=== PATIENT | female | born 1960 | race Hispanic/Latino ===

== ENCOUNTER 2017-07-16 16:53 | Emergency (ER) | payer OTHER ==
[2017-07-16 16:53] VITALS: BMI 34.4
[2017-07-16 17:09] VITALS: TEMP 98.5
[2017-07-16 18:51] VITALS: BP 173/102; PULSE 77; RESP 22; O2SAT 100
--- NOTE | 2017-07-16 19:08 | ED PDOC ---
Arrival/HPI - General Chief Complaint: Back Pain Time Seen by Provider: 07/16/17 17:04 - History of Present Illness Narrative History of Present Illness (Text): 56 y/o F p/w back pain x 9 days. States pain began abruptly after a slip in the shower that strained her R sided back. Since then, especially in the last 3 days , the pain has been severe, shooting down the back of the R leg, worse with movement, especially flexing at the hip. She denies fever, recent surgery, numbness, weakness, urinary or bowel changes. Past Medical History - Infectious Disease Hx of Infectious Diseases: None - Tetanus Immunization Tetanus Immunization: Unknown - Cardiac Hx Cardiac Disorders: Yes Hx Hypertension: Yes - Pulmonary Hx Respiratory Disorders: No - Neurological Hx Neurological Disorder: No - HEENT Hx HEENT Disorder: Yes (wears glasses) - Renal Hx Renal Disorder: No - Endocrine/Metabolic Hx Endocrine Disorders: Yes Hx Hypothyroidism: Yes - Hematological/Oncological Hx Blood Disorders: No - Integumentary Hx Dermatological Disorder: No - Musculoskeletal/Rheumatological Hx Falls: No - Gastrointestinal Hx Gastrointestinal Disorders: Yes Hx Diverticulitis: Yes (and diverticulosis) - Genitourinary/Gynecological Hx Genitourinary Disorders: No - Psychiatric Hx Anxiety: Yes Hx Substance Use: No - Surgical History Hx Appendectomy: Yes Hx Hysterectomy: Yes - Anesthesia Hx Anesthesia: Yes - Suicidal Assessment Feels Threatened In Home Enviroment: No Family/Social History Family/Social History: No Known Family HX Smoking Status: Never Smoked Hx Alcohol Use: No Hx Substance Use: No Hx Substance Use Treatment: No Allergies/Home Meds Allergies/Adverse Reactions: Allergies No Known Allergies Allergy (Verified 07/16/17 17:05) Home Medications: Home Meds Medication Instructions Recorded Confirmed Alprazolam [Xanax] 1 mg PO PRN PRN 12/01/15 07/16/17 Levothyroxine [Synthroid] 50 mcg PO DAILY 12/12/16 07/16/17 Losartan [Cozaar] 100 mg PO DAILY 07/16/17 07/16/17 Review of Systems - Physician Review All systems were reviewed & negative as marked: Yes - Review of Systems Constitutional: absent: Fevers Respiratory: absent: SOB Physical Exam - Physical Exam Narrative Physical Exam (Text): R sided back pain, positive straight leg raise. No midline tenderness. Vital Signs Temp Pulse Resp BP Pulse Ox 07/16/17 18:49 77 22 173/102 H 100 07/16/17 17:14 98.5 F 88 18 179/99 H 97 07/16/17 17:06 98.5 F 88 18 179/99 H 98 - Systems Exam Head: Present: Normocephalic Pupils: Present: PERRL Mouth: Present: Moist Mucous Membranes Neck: No: MIDLINE TENDERNESS Respiratory/Chest: Present: Clear to Auscultation Cardiovascular: Present: Regular Rate and Rhythm Abdomen: No: Tenderness Upper Extremity: Present: NORMAL PULSES Lower Extremity: No: Edema Skin: No: Rashes Psychiatric: Present: Alert Medical Decision Making ED Course and Treatment: Toradol and Flexeril for pain. Checked [employer] [employer] [facility], 2 prescriptions for tramadol within the past year, unable to prescribe further opioids under [place] law. Informed patient of this, advised f/u with PMD for further management. Instructed to return to the ED immediately for urinary or bowel changes, numbness, or weakness. - Medication Orders Current Medication Orders: Discontinued Medications Cyclobenzaprine HCl (Flexeril) 10 mg PO STAT STA Stop: 07/16/17 19:02 Last Admin: 07/16/17 19:13 Dose: 10 mg Ketorolac Tromethamine (Toradol) 60 mg IM STAT STA Stop: 07/16/17 17:41 Last Admin: 07/16/17 17:58 Dose: 60 mg Disposition/Present on Arrival - Present on Arrival Any Indicators Present on Arrival: No History of DVT/PE: No History of Uncontrolled Diabetes: No Urinary Catheter: No History of Decub. Ulcer: No History Surgical Site Infection Following: None - Disposition Have Diagnosis and Disposition been Completed?: Yes Diagnosis: Back pain Disposition: HOME/ ROUTINE Disposition Time: 19:10 Patient Plan: Discharge Condition: STABLE Discharge Instructions (ExitCare): Lumbar Radiculopathy (ED), Back Pain (ED) Prescriptions: Methocarbamol [Robaxin-750] 1 tab PO Q8H #12 tablet Referrals: Pratibha Dickey MD [Primary Care Provider] - Follow up with primary Forms: [employer] ([place]i), WORK NOTE
== END 2017-07-16 19:20 | disposition home or self-care (01) ==
LOC: ED 16:53
DX: M54.9 Dorsalgia, unspecified (principal)
CPT/HCPCS: 96372; 99283; J1885

== ENCOUNTER 2017-07-17 08:15 | Emergency (ER) | payer OTHER ==
[2017-07-17 08:22] VITALS: TEMP 98.3; BMI 36.4
--- NOTE | 2017-07-17 08:58 | ED PDOC ---
Arrival/HPI - General Chief Complaint: Back Pain Time Seen by Provider: 07/17/17 08:15 Historian: Patient - History of Present Illness Narrative History of Present Illness (Text): 07/17/17 09:08 A 56 year old female, whose past medical history includes diverticulitis, hypertension and anxiety, was brought in by EMS to the emergency department complaining of right sided lower back pain radiating to lower extremity, worsening for the past few days. Reports to taking Percocet last night, with no relief. Pt denies any other complaints at this time. Denies any alcohol or drug use. PMD: Dr. Dickey 07/17/17 13:49 Time/Duration: > week Symptom Onset: Sudden Symptom Course: Unchanged Activities at Onset: Rest Context: Home Past Medical History - Provider Review Nursing Documentation Reviewed: Yes - Infectious Disease Hx of Infectious Diseases: None - Tetanus Immunization Tetanus Immunization: Unknown - Reproductive Menopause: No - Cardiac Hx Cardiac Disorders: Yes Hx Hypertension: Yes - Pulmonary Hx Respiratory Disorders: No - Neurological Hx Neurological Disorder: No - HEENT Hx HEENT Disorder: Yes (wears glasses) - Renal Hx Renal Disorder: No - Endocrine/Metabolic Hx Endocrine Disorders: Yes Hx Hypothyroidism: Yes - Hematological/Oncological Hx Blood Disorders: No - Integumentary Hx Dermatological Disorder: No - Musculoskeletal/Rheumatological Hx Falls: No - Gastrointestinal Hx Gastrointestinal Disorders: Yes Hx Diverticulitis: Yes (and diverticulosis) - Genitourinary/Gynecological Hx Genitourinary Disorders: No - Psychiatric Hx Anxiety: Yes Hx Substance Use: No - Surgical History Hx Appendectomy: Yes Hx Hysterectomy: Yes - Anesthesia Hx Anesthesia: Yes - Suicidal Assessment Feels Threatened In Home Enviroment: No Family/Social History - Physician Review Nursing Documentation Reviewed: Yes Family/Social History: No Known Family HX Smoking Status: Never Smoked Hx Alcohol Use: No Hx Substance Use: No Hx Substance Use Treatment: No Allergies/Home Meds Allergies/Adverse Reactions: Allergies No Known Allergies Allergy (Verified 07/17/17 08:29) Home Medications: Home Meds Medication Instructions Recorded Confirmed Alprazolam [Xanax] 1 mg PO PRN PRN 12/01/15 07/17/17 Levothyroxine [Synthroid] 50 mcg PO DAILY 12/12/16 07/17/17 Losartan [Cozaar] 100 mg PO DAILY 07/16/17 07/17/17 Review of Systems - Physician Review All systems were reviewed & negative as marked: Yes - Review of Systems Constitutional: absent: Fevers Musculoskeletal: Back Pain Skin: Other (R lower extremity pain, numbness) Physical Exam Vital Signs Reviewed: Yes Vital Signs Temp Pulse Resp BP Pulse Ox 07/17/17 09:55 81 18 169/88 H 98 07/17/17 09:28 81 18 175/87 H 100 07/17/17 08:20 98.3 F 94 H 20 164/114 H 100 Temperature: Afebrile Blood Pressure: Hypertensive Pulse: Regular Respiratory Rate: Normal Appearance: Positive for: Other (obese) Pain Distress: Mild Mental Status: Positive for: Alert and Oriented X 3 - Systems Exam Head: Present: Atraumatic, Normocephalic Pupils: Present: PERRL Extroacular Muscles: Present: EOMI Conjunctiva: Present: Normal Mouth: Present: Moist Mucous Membranes Neck: Present: Normal Range of Motion Respiratory/Chest: Present: Clear to Auscultation, Good Air Exchange. No: Respiratory Distress, Accessory Muscle Use Cardiovascular: Present: Regular Rate and Rhythm, Normal S1, S2. No: Murmurs Abdomen: Present: Normal Bowel Sounds. No: Tenderness, Distention, Peritoneal Signs Back: Present: Normal Inspection Upper Extremity: Present: Normal Inspection. No: Cyanosis, Edema Lower Extremity: Present: Normal Inspection. No: Edema Neurological: Present: GCS=15, CN II-XII Intact, Speech Normal, Motor Func Grossly Intact, Normal Sensory Function Skin: Present: Warm, Dry, Normal Color. No: Rashes Psychiatric: Present: Alert, Oriented x 3, Normal Insight, Normal Concentration Medical Decision Making ED Course and Treatment: 07/17/17 08:58 Impression: A 56 year old female with right sided lower back pain radiating down right lower extremity s/p slip and fall 10 days ago. Differential Diagnosis included but are not limited to: r/o fracture dislocation, sciatica Plan: -- Radiology Lumbar spine -- Toradol, Valium -- Reassess and disposition Prior Visits: Notes and results from previous visits were reviewed. Patient last reported to the emergency department on 07/16/17 for evaluation of back pain. Patient was given toradol and Flexeril and discharged home on Robaxin. Progress Notes: 07/17/17 09:28 Patient complaining of pain, given Morphine. 07/17/17 10:25 Radiographs of the Lumbar Spine Creator : Kyler Nguyen MD IMPRESSION: Unremarkable radiographs of the lumbar spine. 07/17/17 11:09 pt feels alot better,. sleeping in bed in no distress Patient in agreement with plan to be discharged home. Patient is stable for discharge. Patient was instructed to follow up with physician/clinic in 1-2 days or return if symptoms worsen or new concerning symptoms arise. 07/17/17 13:50 - RAD Interpretation Radiology Orders: 07/17/17 08:53 LS SPINE AP/LAT [RAD] Stat - Medication Orders Current Medication Orders: Discontinued Medications Diazepam (Valium) 5 mg PO ONCE ONE PRN Reason: Protocol Stop: 07/17/17 08:54 Last Admin: 07/17/17 09:00 Dose: 5 mg Ketorolac Tromethamine (Toradol) 30 mg IVP ONCE ONE Stop: 07/17/17 08:54 Last Admin: 07/17/17 08:58 Dose: 30 mg Morphine Sulfate (Morphine) 4 mg IVP STAT STA Stop: 07/17/17 09:28 Last Admin: 07/17/17 09:30 Dose: 4 mg Morphine Sulfate (Morphine) Confirm Administered Dose 4 mg .ROUTE .STK-MED ONE Stop: 07/17/17 09:32 Last Admin: 07/17/17 09:37 Dose: - Scribe Statement The provider has reviewed the documentation as recorded by the Meganibdarshan Bales Provider Scribe Attestation: All medical record entries made by the Scribe were at my direction and personally dictated by me. I have reviewed the chart and agree that the record accurately reflects my personal performance of the history, physical exam, medical decision making, and the department course for this patient. I have also personally directed, reviewed, and agree with the discharge instructions and disposition. Disposition/Present on Arrival - Present on Arrival Any Indicators Present on Arrival: No History of DVT/PE: No History of Uncontrolled Diabetes: No Urinary Catheter: No History of Decub. Ulcer: No History Surgical Site Infection Following: None - Disposition Have Diagnosis and Disposition been Completed?: Yes Diagnosis: Back pain Disposition: HOME/ ROUTINE Disposition Time: 09:45 Patient Plan: Discharge Patient Problems: Current Active Problems Problem Status Onset Back pain Acute Condition: IMPROVED Discharge Instructions (ExitCare): Back Pain (ED) Additional Instructions: follow up with your primary doctor in 1-2 days continue home pain medications as needed return to the ED with any worsening or concerning symptoms Referrals: Pratibha Dickey MD [Primary Care Provider] - Follow up with primary Forms: [employer] (Swedish)
[2017-07-17] MEDS ORDERED: Morphine 4 mg/ml ISec IVP STA (09:27)
[2017-07-17] MEDS ORDERED: Morphine 4 mg/ml ISec ONE (09:31)
[2017-07-17 09:37] VITALS: PULSE 81; RESP 18
--- NOTE | 2017-07-17 10:23 | RAD ---
PROCEDURE: Radiographs of the Lumbar Spine. HISTORY: lower back pain COMPARISON: No prior. FINDINGS: BONES: Normal alignment. No listhesis. No fracture. DISC SPACES: Unremarkable. OTHER FINDINGS: None. IMPRESSION: Unremarkable radiographs of the lumbar spine.
[2017-07-17 10:25] VITALS: BP 169/88; O2SAT 98
--- NOTE | 2017-07-17 13:37 | CARD ---
APPROVED REPORT EKG Measurement Heart [id number] <Conclusion> possibly sinus rhythm
== END 2017-07-17 11:30 | disposition home or self-care (01) ==
LOC: ED 08:15
DX: M54.9 Dorsalgia, unspecified (principal); I10 Essential (primary) hypertension
CPT/HCPCS: 72100; 93005; 96374; 96375; 99285; J1885; J2270

== ENCOUNTER 2017-09-04 14:34 | Observation (INO) | payer OTHER ==
[2017-09-04] MEDS ORDERED: TDAP Vaccine 0.5 mL Syr IM ONE (14:47)
--- NOTE | 2017-09-04 14:55 | ED PDOC ---
Arrival/HPI - General Historian: Patient - History of Present Illness Time/Duration: Prior to Arrival Symptom Onset: Sudden Symptom Course: Improving Quality: Burning, Throbbing Severity Level: Mild, Moderate Context: Street, Tripped <Tania Richey - Last Filed: 09/04/17 18:08> <Winifred Rodgers - Last Filed: 09/04/17 21:50> - General Chief Complaint: Trauma Time Seen by Provider: 09/04/17 14:38 - History of Present Illness Narrative History of Present Illness (Text): 09/04/17 14:52 [facility] 56F w/PMH sig for HTN, chronic low back pain 2/2 herniated disc evaluated s/p fall. Pt reports she was running to catch a door, became dizzy, and fell forward onto her outstretched hands and left face. Pt reports pain of her bilat hands, L face. Denies trauma to other areas of her body, Loss of consciousness , loss of bowel or bladder, other complaints. PMH: HTN, L 5 herniated disc PSH: Hysterectomy, appendectomy All: Denies SH: Admits to tobacco use #1 cigarette/day, denies ETOH or illicit drug use PMD: [facility]thar (Tania Richey) Past Medical History - Provider Review Nursing Documentation Reviewed: Yes - Infectious Disease Hx of Infectious Diseases: None - Tetanus Immunization Tetanus Immunization: Unknown - Cardiac Hx Cardiac Disorders: Yes Hx Hypertension: Yes - Pulmonary Hx Respiratory Disorders: No - Neurological Hx Neurological Disorder: No - HEENT Hx HEENT Disorder: No - Renal Hx Renal Disorder: No - Endocrine/Metabolic Hx Endocrine Disorders: Yes Hx Hypothyroidism: Yes - Hematological/Oncological Hx Blood Disorders: No - Integumentary Hx Dermatological Disorder: No - Musculoskeletal/Rheumatological Hx Falls: No - Gastrointestinal Hx Gastrointestinal Disorders: Yes Hx Diverticulitis: Yes (and diverticulosis) - Genitourinary/Gynecological Hx Genitourinary Disorders: No - Psychiatric Hx Psychophysiologic Disorder: Yes Hx Anxiety: Yes Hx Substance Use: No - Surgical History Hx Appendectomy: Yes Hx Hysterectomy: Yes - Anesthesia Hx Anesthesia: Yes - Suicidal Assessment Feels Threatened In Home Enviroment: No <Tania Richey - Last Filed: 09/04/17 18:08> Family/Social History - Physician Review Nursing Documentation Reviewed: Yes Family/Social History: No Known Family HX Smoking Status: Never Smoked Hx Alcohol Use: No Hx Substance Use: No Hx Substance Use Treatment: No <RicheyTania - Last Filed: 09/04/17 18:08> Allergies/Home Meds <RicheyTania - Last Filed: 09/04/17 18:08> <Winifred Rodgers - Last Filed: 09/04/17 21:50> Allergies/Adverse Reactions: Allergies No Known Allergies Allergy (Verified 09/04/17 14:44) Home Medications: Home Meds Medication Instructions Recorded Confirmed Alprazolam [Xanax] 0.25 mg PO BID 12/01/15 09/04/17 Levothyroxine [Synthroid] 50 mcg PO DAILY 12/12/16 09/04/17 Losartan [Cozaar] 100 mg PO DAILY 07/16/17 09/04/17 amLODIPine [Norvasc] 10 mg PO DAILY 09/04/17 09/04/17 Review of Systems - Review of Systems Constitutional: Normal Eyes: Normal. absent: Vision Changes ENT: Normal. absent: Sore Throat Respiratory: Normal. absent: SOB Cardiovascular: Normal. absent: Chest Pain Gastrointestinal: Normal, Nausea (resolved). absent: Vomiting Musculoskeletal: Other (hand pain) Skin: Skin Lesions (abrasions over bilat palms, small). absent: Normal Neurological: Dizziness. absent: Normal Endocrine: Normal. absent: Diaphoresis <Tania Richey - Last Filed: 09/04/17 18:08> Physical Exam Vital Signs Reviewed: Yes Temperature: Afebrile Blood Pressure: Hypertensive Pulse: Tachycardic Respiratory Rate: Normal Appearance: Positive for: Non-Toxic Pain Distress: Mild Mental Status: Positive for: Alert and Oriented X 3 Finger Stick Blood Glucose: 107 - Systems Exam Head: Present: Tenderness (over left maxilla), Swelling (left maxilla). No: Atraumatic Extroacular Muscles: Present: EOMI Conjunctiva: Present: Normal Mouth: Present: Moist Mucous Membranes Nose (External): Present: Atraumatic Neck: Present: Normal Range of Motion Respiratory/Chest: Present: Clear to Auscultation, Good Air Exchange. No: Respiratory Distress, Accessory Muscle Use Cardiovascular: Present: Regular Rate and Rhythm, Normal S1, S2. No: Murmurs Abdomen: Present: Normal Bowel Sounds. No: Tenderness, Distention, Peritoneal Signs Back: Present: Normal Inspection Upper Extremity: No: Normal Inspection (hands with erythema, bruising of palmar aspect, with small superficial abrasions), Cyanosis Lower Extremity: Present: Normal Inspection. No: Edema Neurological: Present: GCS=15, CN II-XII Intact, Speech Normal, Motor Func Grossly Intact, Normal Sensory Function Skin: Present: Warm, Dry, Abrasion (palms bilat) Psychiatric: Present: Alert, Oriented x 3, Normal Insight, Normal Concentration <Tania Richey - Last Filed: 09/04/17 18:08> Vital Signs Temp Pulse Resp BP Pulse Ox 09/04/17 18:29 93 H 22 96 09/04/17 18:14 94 H 170/95 H 09/04/17 17:24 86 19 170/95 H 96 09/04/17 17:18 86 18 183/94 H 98 09/04/17 14:45 98 F 100 H 17 167/117 H 98 Medical Decision Making <Tania Richey - Last Filed: 09/04/17 18:08> <Winifred Rodgers - Last Filed: 09/04/17 21:50> ED Course and Treatment: 09/04/17 14:58 Pt seen/evaluated, will order labs, CT brain & face to assess. (Tania Richey) Patient seen and examined with resident. Came up with treatment and disposition plan with resident. A 56 year old female, whose past medical history includes hypertension and lumbar disc disease, reports while running she felt dizzy and fell hitting her head. Patient is uncertain whether she passed out or not. She currently complains of facial pain but denies any back or chest pain. On examination, patient is neurologically intact. Will obtain head and facial CT, and perform cardiac evaluation. Report Date : 09/04/2017 16:57:05 PROCEDURE: CT HEAD WITHOUT CONTRAST. Dictator : Herminio Piña MD IMPRESSION: No evidence of acute intracranial hemorrhage intracranial collection mass effect or midline shift. Report Date : 09/04/2017 17:14:25 PROCEDURE: CT MAXILLOFACIAL BONES WITHOUT CONTRAST Dictator : Herminio Piña MD IMPRESSION: No evidence of acute fracture. Mild subcutaneous stranding and soft tissue swelling seen at the left anterior facial region. 09/04/17 17:54 I have discussed the CT results with patient. She denies any chest pain or shortness of breath at this time. Patient reports her mother had open heart surgery in her 50's. She is a current smoker. Due to risk factors will admit for further monitoring. Dr. Dickey accepted admission to her service. She currently denies any chest pain or shortness of breath. I have discussed case with application development consultant Dr. Mars, aware of consultation. 09/04/17 21:47 (Winifred Rodgers) - Lab Interpretations Lab Results: 09/04/17 15:37 09/04/17 15:37 Lab Results 09/04/17 15:37: Sodium 141, Potassium 3.8, Chloride 105, Carbon Dioxide 27, Anion Gap 13, BUN 16, Creatinine 0.6 L, Est GFR ( Amer) > 60, Est GFR ( Non-Af Amer) > 60, Random Glucose 101, Calcium 9.1, Total Bilirubin 0.6, AST 32 , ALT 36, Alkaline Phosphatase 99, Lactate Dehydrogenase 444, Total Creatine Kinase 70, Troponin I < 0.01, Total Protein 7.3, Albumin 4.0, Globulin 3.3, Albumin/Globulin Ratio 1.2 09/04/17 15:37: WBC 8.9, RBC 3.82, Hgb 11.7 L, Hct 36.2, MCV 94.8, MCH 30.6, MCHC 32.3, RDW 13.7, Plt Count 286, MPV 11.1 H, Gran % 68.6 H, Lymph % (Auto) 23.1, Gallia % (Auto) 6.2 H, Eos % (Auto) 1.9, Baso % (Auto) 0.2, Gran # 6.09, Lymph # 2.1, Gallia # 0.6, Eos # 0.2, Baso # 0.02 - RAD Interpretation Radiology Orders: 09/04/17 14:47 HEAD W/O CONTRAST [CT] Stat MAXILLOFACIAL W/O CONTRAST [CT] Stat - Medication Orders Current Medication Orders: Alprazolam (Xanax) 0.25 mg PO BID PATRICIA PRN Reason: Protocol Stop: 09/12/17 10:01 Amlodipine Besylate (Norvasc) 10 mg PO DAILY PATRICIA Levothyroxine Sodium (Synthroid) 50 mcg PO DAILY PATRICIA Losartan Potassium (Cozaar) 100 mg PO DAILY PATRICIA Discontinued Medications Aspirin (Aspirin Chewable) 81 mg PO STAT STA Stop: 09/04/17 17:54 Last Admin: 09/04/17 17:59 Dose: 81 mg Clonidine HCl (Catapres) 0.1 mg PO ONCE STA Stop: 09/04/17 18:07 Last Admin: 09/04/17 18:14 Dose: 0.1 mg MAR Pulse and Blood Pressure Document 09/04/17 18:14 [email or web address] (Rec: 09/04/17 18:15 [email or web address] [facility] [place], [place] [id number]) Pulse Pulse Rate (60-90) 94 Blood Pressure Blood Pressure (100/60-150/90) 170/95 Ibuprofen (Motrin Tab) 600 mg PO STAT STA Stop: 09/04/17 15:00 Last Admin: 09/04/17 15:41 Dose: 600 mg MAR Pain/Vitals Document 09/04/17 15:41 (Rec: 09/04/17 15:41 [facility] [id number] Pain Reassessment Is This A Pain ReAssessment? Yes Sleep Is patient sleeping during reassessment? No Presence of Pain Presence of Pain Yes Pneumococcal Polyvalent Vaccine (Pneumovax 23 Vaccine) 0.5 ml IM .ONCE ONE Stop: 09/04/17 20:54 Tetanus/Reduced Diphtheria/Acell Pertussis (Boostrix Vaccine Inj) 0.5 ml IM .ONCE ONE Stop: 09/04/17 14:48 Last Admin: 09/04/17 15:40 Dose: 0.5 ml MAR Immunization Data Document 09/04/17 15:40 (Rec: 09/04/17 15:41 [facility] [id number] Immunization Data Vaccine Lot Number [id number] <Tania Richey - Last Filed: 09/04/17 18:08> - PA / DIRECTOR STARS / Resident Statement /DO has reviewed & agrees with the documentation as recorded. / has examined the patient and agrees with the treatment plan. - Scribe Statement The provider has reviewed the documentation as recorded by the Scribe <Winifred Rodgers - Last Filed: 09/04/17 21:50> - Scribe Statement Yoselin Hilario Provider Scribe Attestation: All medical record entries made by the Scribe were at my direction and personally dictated by me. I have reviewed the chart and agree that the record accurately reflects my personal performance of the history, physical exam, medical decision making, and the department course for this patient. I have also personally directed, reviewed, and agree with the discharge instructions and disposition. (Winifred Rodgers) Disposition/Present on Arrival - Present on Arrival Any Indicators Present on Arrival: No History of DVT/PE: No History of Uncontrolled Diabetes: No Urinary Catheter: No History of Decub. Ulcer: No History Surgical Site Infection Following: None - Disposition Have Diagnosis and Disposition been Completed?: Yes Patient Plan: Observation <Tania Richey - Last Filed: 09/04/17 18:08> - Disposition Disposition Time: 17:54 <Winifred Rodgers - Last Filed: 09/04/17 21:50> - Disposition Diagnosis: Dizziness, Fall Disposition: HOSPITALIZED Patient Problems: Current Active Problems Problem Status Onset Dizziness Acute Fall Acute Condition: FAIR
--- NOTE | 2017-09-04 15:22 | CP.PCM.PN ---
Subjective - Date & Time of Evaluation Date of Evaluation: 09/04/17 Time of Evaluation: 14:00 - Subjective Subjective: [facility] [place] was called and team responded STAT. Patient was running on the sidewalk outside the hospital, felt dizzy and fell forward landing on her outstretched arms and striking her L side of the face. pt denies LOC, changes in vision, headache, loss of urine/bowel control, chest pain, shortness of breath or recent illness. Pt states that she skipped breakfast and lunch today. upon arrival, the patient was noted to be awake and alert and on a stretcher that the team had brought outside the hospital. she was speaking coherently and in NAD, just mild anxiety from the fall. Objective - Vital Signs/Intake and Output Vital Signs (last 24 hours): Temp Pulse Resp BP Pulse Ox 98 F 100 H 17 167/117 H 98 09/04/17 14:45 09/04/17 14:45 09/04/17 14:45 09/04/17 14:45 09/04/17 14:45 - Constitutional Appears: Well, Non-toxic, No Acute Distress - Head Exam Head Exam: ATRAUMATIC, NORMAL INSPECTION, NORMOCEPHALIC - Eye Exam Eye Exam: EOMI, Normal appearance, PERRL Pupil Exam: NORMAL ACCOMODATION, PERRL Additional comments: no nystagmus or pain w/o ocular movements - ENT Exam ENT Exam: Mucous Membranes Moist - Neck Exam Neck Exam: Full ROM. absent: Tenderness - Respiratory Exam Respiratory Exam: Clear to Ausculation Bilateral, NORMAL BREATHING PATTERN - Cardiovascular Exam Cardiovascular Exam: Tachycardia, RRR - GI/Abdominal Exam GI & Abdominal Exam: Soft, Normal Bowel Sounds. absent: Tenderness - Extremities Exam Extremities Exam: Full ROM - Back Exam Back Exam: Full ROM, NORMAL INSPECTION. absent: tenderness, vertebral tenderness - Neurological Exam Neurological Exam: Alert, Awake, Oriented x3 Neuro motor strength exam: Left Upper Extremity: 5, Right Upper Extremity: 5, Left Lower Extremity: 5, Right Lower Extremity: 5 - Psychiatric Exam Psychiatric exam: Anxious - Skin Skin Exam: Abrasion (on b/l palmar surfaces), Normal Color, Warm Assessment and Plan - Assessment and Plan (Free Text) Assessment: 56yo F presenting to ED after [facility] [place] was called due to fall outside the hospital, with +head trauma but no LOC Plan: 1. CODE STAR s/p fall likely 2/2 vasovagal response - patient transferred to ED for further evaluation - CT Head and orbits ordered - workup per ED team Patient was seen, examined and discussed with attending, Dr. Los Plascencia PGY1
[2017-09-04 16:08] LABS: BASO # 0.02 K/mm3 (0.0-2.0); BASO % 0.2 % (0.0-3.0); EOS # 0.2 (0.0-0.7); EOS % 1.9 % (1.5-5.0); GRAN # 6.09 (1.4-6.5); GRAN % 68.6 % (50.0-68.0); HEMATOCRIT 36.2 % (36.0-48.0); LYMPH # 2.1 (1.2-3.4); LYMPH % 23.1 % (22.0-35.0); MEAN CELL VOLUME 94.8 fl (80.0-105.0); MEAN CORPUSCULAR HEMOGLOBIN 30.6 pg (25.0-35.0); MEAN CORPUSCULAR HGB CONC 32.3 g/dl (31.0-37.0); MEAN PLATELET VOLUME 11.1 fl (7.0-11.0); MONO # 0.6 (0.1-0.6); MONO % 6.2 % (1.0-6.0); RED CELL DISTRIBUTION WIDTH 13.7 % (11.5-14.5); WHITE BLOOD COUNT 8.9 10^3/ul (4.5-11.0)
[2017-09-04 16:25] LABS: ALB/GLOB RATIO 1.2 (1.1-1.8); ALKALINE PHOSPHATASE 99 U/L (38-126); ALT/SGPT 36 U/L (7-56); AST/SGOT 32 U/L (14-36); BILIRUBIN,TOTAL 0.6 mg/dL (0.2-1.3); BLOOD UREA NITROGEN 16 mg/dL (7-21); CALCIUM 9.1 mg/dL (8.4-10.5); CARBON DIOXIDE 27 mmol/L (21-33); CHLORIDE 105 mmol/L (98-107); GFR AFRICAN-AMERICAN > 60; GLUCOSE,RANDOM 101 mg/dL (70-110); POTASSIUM 3.8 mmol/L (3.6-5.0); SODIUM 141 mmol/L (132-148); TOTAL PROTEIN 7.3 g/dL (5.8-8.3)
[2017-09-04 16:39] LABS: TROPONIN I < 0.01 ng/mL
--- NOTE | 2017-09-04 16:59 | CT ---
PROCEDURE: CT HEAD WITHOUT CONTRAST. HISTORY: fall COMPARISON: None available. TECHNIQUE: Axial computed tomography images were obtained through the head/brain without intravenous contrast. Radiation dose: Total exam DLP = 678.13 mGy-cm. This CT exam was performed using one or more of the following dose reduction techniques: Automated exposure control, adjustment of the mA and/or kV according to patient size, and/or use of iterative reconstruction technique. FINDINGS: HEMORRHAGE: No intracranial hemorrhage. BRAIN: No mass effect or edema. No atrophy or chronic microvascular ischemic changes. VENTRICLES: Unremarkable. No hydrocephalus. CALVARIUM: Unremarkable. PARANASAL SINUSES: Unremarkable as visualized. No significant inflammatory changes. MASTOID AIR CELLS: Unremarkable as visualized. No inflammatory changes. OTHER FINDINGS: None. IMPRESSION: No evidence of acute intracranial hemorrhage intracranial collection mass effect or midline shift.
--- NOTE | 2017-09-04 17:16 | CT ---
PROCEDURE: CT MAXILLOFACIAL BONES WITHOUT CONTRAST HISTORY: fall COMPARISON: None TECHNIQUE: Contiguous axial CT images of the maxillofacial bones were obtained. Coronal and sagittal reformats were generated. Radiation dose: Total exam DLP = 816.99 mGy-cm. This CT exam was performed using one or more of the following dose reduction techniques: Automated exposure control, adjustment of the mA and/or kV according to patient size, and/or use of iterative reconstruction technique. FINDINGS: NASAL BONES: Unremarkable. ORBITS: Unremarkable. PARANASAL SINUSES/ MASTOIDS: Clear. MAXILLA: Unremarkable. MANDIBLE/ TEMPOROMANDIBULAR JOINTS: Unremarkable. SKULL BASE: Unremarkable. TEMPORAL BONES: Middle ears and mastoid grossly unremarkable. OTHER FINDINGS: Mild subcutaneous stranding seen at the left anterior facial region/left chin likely represent posttraumatic changes. IMPRESSION: No evidence of acute fracture. Mild subcutaneous stranding and soft tissue swelling seen at the left anterior facial region.
[2017-09-04 20:53] VITALS: BMI 29.2
[2017-09-04] MEDS ORDERED: Influenza Vaccine 60 mcg/0.5 mL SYR (4YR UP) IM ONE (20:53)
[2017-09-04] MEDS ORDERED: Pneumococcal 23-Valent Vaccine IM ONE (20:53)
[2017-09-05 02:43] VITALS: RESP 20
--- NOTE | 2017-09-05 06:01 | CP.PCM.PN ---
Subjective - Date & Time of Evaluation Date of Evaluation: 09/05/17 Time of Evaluation: 06:00 - Subjective Subjective: Patient was seen at bedside. Complained of both knees pain. Also stated that she feels anxious. Has no other complaints at this time. 56 year old woman was admitted with complaint of dizziness following a fall. PMH of hypothyroidism, HTN, obesity, diverticulitis. Objective - Vital Signs/Intake and Output Vital Signs (last 24 hours): Temp Pulse Resp BP Pulse Ox 98.4 F 77 20 139/71 96 09/05/17 00:01 09/05/17 02:00 09/05/17 00:01 09/05/17 00:01 09/04/17 18:29 Intake and Output: 09/04/17 09/05/17 18:59 06:59 Intake Total 0 Balance 0 - Medications Medications: Current Medications Alprazolam (Xanax) 0.25 mg PO BID [facility] PRN Reason: Protocol Stop: 09/12/17 10:01 Amlodipine Besylate (Norvasc) 10 mg PO DAILY [facility] Levothyroxine Sodium (Synthroid) 50 mcg PO DAILY [facility] Losartan Potassium (Cozaar) 100 mg PO DAILY [facility] - Constitutional Appears: Well, No Acute Distress - Head Exam Head Exam: ATRAUMATIC, NORMAL INSPECTION, NORMOCEPHALIC - Eye Exam Eye Exam: Normal appearance - ENT Exam ENT Exam: Normal External Ear Exam - Neck Exam Neck Exam: Normal Inspection - Respiratory Exam Respiratory Exam: NORMAL BREATHING PATTERN - Cardiovascular Exam Cardiovascular Exam: absent: JVD - GI/Abdominal Exam GI & Abdominal Exam: absent: Distended - Rectal Exam Rectal Exam: Deferred - Exam Additional comments: Deferred. - Extremities Exam Extremities Exam: Tenderness (both knees .) - Back Exam Back Exam: NORMAL INSPECTION - Neurological Exam Neurological Exam: Alert, Oriented x3 - Psychiatric Exam Psychiatric exam: Normal Affect, Normal Mood - Skin Skin Exam: Normal Color Assessment and Plan - Assessment and Plan (Free Text) Assessment: Knees pain. Anxiety. HTN. DM II. Obesity. S/P fall. Plan: Motrin as ordered. Xanax as ordered. Continue present management.
[2017-09-05 07:00] VITALS: O2SAT 94
--- NOTE | 2017-09-05 08:27 | CARD ---
APPROVED REPORT EKG Measurement Heart [id number] <Conclusion> Normal sinus rhythm NSSTW changes Electrical artifact present
--- NOTE | 2017-09-05 08:55 | RAD ---
HISTORY: near syncope COMPARISON: 10/01/2016. FINDINGS: LUNGS: The lungs are well inflated. No focal consolidation. There is a linear scar in the left lung base. PLEURA: No significant pleural effusion identified, no pneumothorax apparent. CARDIOVASCULAR: Normal. OSSEOUS STRUCTURES: No significant abnormalities. VISUALIZED UPPER ABDOMEN: Normal. OTHER FINDINGS: None. IMPRESSION: No active pulmonary disease.
[2017-09-05] MEDS ORDERED: Levothyroxine 50 MCG TAB PO SCH (10:00)
--- NOTE | 2017-09-05 10:14 | CP.PCM.CON ---
History of Present Illness - History of Present Illness History of Present Illness: Neurology consult note for Dr. Landeros's service - Pari Mcleod PGY2 HPI: Patient is a 56yo female with past medical history of hypertension, chronic low back pain, diverticulitis that presented s/p fall. Patient had fallen outside [facility] and subsequently had a code star called. Patient reports running towards a door when she suddenly felt dizzy and fell onto her outstretched hands. She reports having injured her hands and the left side of her face. She denied having lost consciousness, tongue biting, post- ictal like state, loss of bowel/bladder function. She was subsequently brought to the ER for further evaluation. Neurology consulted for evaluation of dizziness. A Head CT revealed no acute intracranial abnormalities. A maxillofacial CT revealed no evidence of acute fracture and mild subcutaneous stranding and soft tissue swelling at the left anterior facial region. Denied chest pain, palpitations, SOB, abdominal pain, nausea, vomiting. 12point ROS as per HPI otherwise negative. PMH: as stated above PSH: Hysterectomy, appendectomy Allergies: NKDA Social Hx: Tobacco use, 1cig/day; denies alcohol and illicit drug use Family Hx: Reviewed, non-contributory Past Patient History - Infectious Disease Hx of Infectious Diseases: None - Tetanus Immunizations Tetanus Immunization: Unknown - Past Social History Smoking Status: Light Smoker < 10 Cigarettes Daily - CARDIAC Hx Hypertension: Yes - PULMONARY Hx Respiratory Disorders: No - NEUROLOGICAL Hx Neurological Disorder: No - HEENT Hx HEENT Problems: No - RENAL Hx Chronic Kidney Disease: No - ENDOCRINE/METABOLIC Hx Endocrine Disorders: Yes Hx Hypothyroidism: Yes - HEMATOLOGICAL/ONCOLOGICAL Hx Blood Disorders: No - INTEGUMENTARY Hx Dermatological Problems: Yes Other/Comment: redness swelling to left cheekbone, small abrasions to palms of both hands - MUSCULOSKELETAL/RHEUMATOLOGICAL Hx Falls: Yes (today) - GASTROINTESTINAL Hx Gastrointestinal Disorders: Yes Hx Diverticulitis: Yes (and diverticulosis) - GENITOURINARY/GYNECOLOGICAL Hx Genitourinary Disorders: No - PSYCHIATRIC Hx Psychophysiologic Disorder: Yes Hx Anxiety: Yes - SURGICAL HISTORY Hx Appendectomy: Yes Hx Hysterectomy: Yes - ANESTHESIA Hx Anesthesia: Yes Meds Allergies/Adverse Reactions: Allergies Allergy/AdvReac Type Severity Reaction Status Date / Time No Known Allergies Allergy Verified 09/04/17 14:44 - Medications Medications: Current Medications Alprazolam (Xanax) 0.25 mg PO BID [facility] PRN Reason: Protocol Stop: 09/12/17 10:01 Amlodipine Besylate (Norvasc) 10 mg PO DAILY [facility] Levothyroxine Sodium (Synthroid) 50 mcg PO DAILY [facility] Losartan Potassium (Cozaar) 100 mg PO DAILY [facility] Physical Exam - Constitutional Appears: Non-toxic, No Acute Distress - Head Exam Head Exam: NORMOCEPHALIC Additional comments: mild abrasion on left side of face - Eye Exam Eye Exam: EOMI Pupil Exam: PERRL - ENT Exam ENT Exam: Mucous Membranes Moist - Respiratory Exam Respiratory Exam: Clear to Auscultation Bilateral. absent: Rales, Rhonchi, Wheezes - Cardiovascular Exam Cardiovascular Exam: +S1, +S2. absent: Gallop, Rubs - GI/Abdominal Exam GI & Abdominal Exam: Soft. absent: Distended, Firm, Guarding, Rigid, Tenderness - Extremities Exam Extremities exam: Positive for: normal inspection - Neurological Exam Neurological exam: Alert, CN II-XII Intact, Oriented x3 Additional comments: Alert and oriented x3 CN2-12 intact PERRL EOMI babinski downward going bilaterally no pronator drift - Psychiatric Exam Psychiatric exam: Normal Affect, Normal Mood - Skin Skin Exam: Dry, Intact, Normal Color, Warm Results - Vital Signs Recent Vital Signs: Last Vital Signs Temp 98.7 F 09/05/17 06:00 Pulse 74 09/05/17 06:00 Resp 20 09/05/17 06:00 BP 138/86 09/05/17 06:00 Pulse Ox 94 L 09/05/17 06:00 - Labs Result Diagrams: 09/04/17 15:37 09/04/17 15:37 Assessment & Plan - Assessment and Plan (Free Text) Plan: 56yo female with history of hypertension, chronic low back pain, diverticulitis that presented s/p fall. Neurology consulted for evaluation of dizziness. A Head CT revealed no acute intracranial abnormalities. A maxillofacial CT revealed no evidence of acute fracture and mild subcutaneous stranding and soft tissue swelling at the left anterior facial region. 1. Syncope vs mechanical fall 2. Hypertension 3. Chronic low back pain 2/2 herniated disk 4. History of diverticulitis -Per patient's history, fall likely mechanical in nature; however, patient instructed to follow up with Dr. Landeros as an outpatient within 1 week of discharge for outpatient EEG/Carotid doppler -Head CT and Maxillofacial CT were reviewed; see full reports -EKG reviewed -Recommend f/u cardiology recommendations; Echocardiogram pending -Continue present medical management as per primary team -Further recommendations as per attending, Dr. Landeros Patient seen and case discussed/reviewed with attending, Dr. Landeros - Date & Time Date: 09/05/17 Time: 10:17
[2017-09-05 13:25] LABS: CHOLESTEROL 173 mg/dL (130-200)
--- NOTE | 2017-09-05 14:42 | CON ---
DATE: 09/05/2017PAST MEDICAL HISTORY: Significant for hypertension, hypothyroidism, obesity, and L5 herniated disk. PAST SURGICAL HISTORY: Appendectomy in 1969 and hysterectomy complete in 1997. CURRENT MEDICATIONS: The patient is taking at home; amlodipine 10 mg, losartan 100, levothyroxine 50, and Xanax 0.25 mg. REVIEW OF SYSTEMS: As per HPI. ALLERGIES: NO KNOWN DRUG ALLERGY. PHYSICAL EXAMINATION: VITAL SIGNS: As follows; temperature afebrile, heart rate 76, and blood pressure 132/86. HEENT: PERRLA. Extraocular muscles intact. NECK: Supple. No carotid bruit or thyromegaly. CHEST: Clear to auscultation. HEART: S1 and S2 regular. ABDOMEN: Soft. EXTREMITIES: Clubbing and cyanosis negative. LABORATORY DATA: Blood workup as follows: WBC 8.9, hemoglobin 11.7, hematocrit 36.2, and platelet count 286. Chemistry shows sodium 141, potassium 3.0, chloride 105, carbon dioxide 27, anion gap of 13, BUN 16, creatinine 0.6, and troponin is 0.01. EKG shows normal sinus, no acute ST-T changes. IMPRESSION AND PLAN: Dizziness, acute shortness of breath, trying to reach the door was closing and fell down. Denies any loss of conscious or syncope. Given the multiple episode of coronary artery disease and episode of shortness of breath, I suggest stress test and echo to rule out mitral regurgitation and rule out an ischemia. Family is significant for coronary artery disease. Mother has bypass at the age of 50. We will add lipid profile and TSH, and we will keep n.p.o. for now for her stress test and echo. We will follow with you. Thank you Dr. Dickey for providing us the opportunity in taking care of Hilary Wallace. Ce Mars MD
[2017-09-05 17:48] VITALS: BP 156/88; TEMP 99.2
--- NOTE | 2017-09-05 17:58 | CARD ---
APPROVED REPORT EXAM: Two-dimensional and M-mode echocardiogram with Doppler and color Doppler. INDICATION Syncope 2D DIMENSIONS Left Atrium (2D)4.0 (1.6-4.0cm)IVSd1.3 (0.7-1.1cm) LVDd4.4 (3.9-5.9cm)PWd1.2 (0.7-1.1cm) LVDs2.7 (2.5-4.0cm)FS (%) 38.2 % LVEF (%)68.6 (>50%) M-Mode DIMENSIONS Aortic Root3.30 (2.2-3.7cm)Aortic Cusp Exc.1.90 (1.5-2.0cm) Aortic Valve AoV Peak Avxzbtqr534.0cm/Kaitlynn Peak GR.8mmHg Mitral Valve MV E Qxigwrzb37.0cm/sMV A Rttqpzcz32.0cm/sE/A ratio0.8 TDI Lateral E' Peak V7.41cm/sMedial E' Peak V5.36cm/sE/Lateral E'8.2 E/Medial E'11.4 Pulmonary Valve PV Peak Yxrspvkg732.0cm/sPV Peak Grad.5mmHg Tricuspid Valve TR Peak Xngdhacu697hk/sRAP [id number] Peak Gr.23mmHg [id number] LEFT VENTRICLE The left ventricle is normal size. There is mild concentric left ventricular hypertrophy. The left ventricular function is normal.EF-65% There is normal LV segmental wall motion. Transmitral Doppler flow pattern is Grade III-reversible restrictive diastolic dysfunction. No left ventricle thrombus noted on this study. There is no ventricular septal defect visualized. There is no left ventricular aneurysm. There is no mass noted in the left ventricle. RIGHT VENTRICLE The right ventricle is normal size. There is normal right ventricular wall thickness. The right ventricular systolic function is normal. ATRIA The left atrium is borderline dilated. The right atrium size is normal. The interatrial septum is intact with no evidence for an atrial septal defect. AORTIC VALVE The aortic valve is thickened but opens well. No aortic regurgitation is present. There is no aortic valvular stenosis. There is no aortic valvular vegetation. MITRAL VALVE The mitral valve is thickened but opens well. Mitral regurgitation is trace. There is no mitral valve stenosis. There is no evidence of mitral valve prolapse. TRICUSPID VALVE The tricuspid valve leaflets are thickened , but open well. There is trace to mild tricuspid regurgitation.RVSp-33 mmof hg. There is no tricuspid valve stenosis. There is no tricuspid valve prolapse or vegetation. PULMONIC VALVE The pulmonary valve is normal in structure. There is no pulmonic valvular regurgitation. There is no pulmonic valvular stenosis. GREAT VESSELS The aortic root is normal in size. The ascending aorta is normal in size. The pulmonary artery is normal. The IVC is normal in size and collapses >50% with inspiration. PERICARDIAL EFFUSION There is no pleural effusion. There is no pericardial effusion. <Conclusion> The left ventricle is normal size. There is mild concentric left ventricular hypertrophy. The left ventricular function is normal.EF-65% Mitral regurgitation is trace. There is trace to mild tricuspid regurgitation.RVSp-33 mmof hg.
[2017-09-05 19:04] VITALS: PULSE 97
--- NOTE | 2017-09-05 21:43 | CP.PCM.PN ---
Subjective - Date & Time of Evaluation Date of Evaluation: 09/05/17 Time of Evaluation: 21:40 - Subjective Subjective: Patient was seen at bedside in presence of her nurse Alexandra. She states that she wants to go home and does not want to wait until result of stress test is back. was notified as per nurse and she is aware of the situation. Patient is saying that she will go to see on Friday. She has no acute symptoms at this time. This 56 year old woman was admitted with complaint of dizziness and after having had a fall. She has PMH of HTN, obesity,hypothyroidism, diverticulitis. Objective - Vital Signs/Intake and Output Vital Signs (last 24 hours): Temp Pulse Resp BP Pulse Ox 99.2 F 97 H 20 156/88 H 94 L 09/05/17 17:46 09/05/17 18:00 09/05/17 17:46 09/05/17 17:46 09/05/17 06:00 Intake and Output: 09/05/17 09/06/17 18:59 06:59 Intake Total 180 Output Total 2 Balance 178 - Medications Medications: Current Medications Alprazolam (Xanax) 0.25 mg PO BID [facility] PRN Reason: Protocol Stop: 09/12/17 10:01 Last Admin: 09/05/17 17:56 Dose: 0.25 mg Amlodipine Besylate (Norvasc) 10 mg PO DAILY [facility] Last Admin: 09/05/17 11:53 Dose: 10 mg Levothyroxine Sodium (Synthroid) 50 mcg PO DAILY [facility] Last Admin: 09/05/17 11:53 Dose: 50 mcg Losartan Potassium (Cozaar) 100 mg PO DAILY [facility] Last Admin: 09/05/17 11:54 Dose: 100 mg - Labs Labs: Last Vital Signs Temp 99.2 F 09/05/17 17:46 Pulse 97 H 09/05/17 18:00 Resp 20 09/05/17 17:46 BP 156/88 H 09/05/17 17:46 Pulse Ox 94 L 09/05/17 06:00 Laboratory Last Values WBC 8.9 10^3/ul (4.5-11.0) 09/04/17 15:37 RBC 3.82 10^6/uL (3.5-6.1) 09/04/17 15:37 Hgb 11.7 g/dL (12.0-16.0) L 09/04/17 15:37 Hct 36.2 % (36.0-48.0) 09/04/17 15:37 MCV 94.8 fl (80.0-105.0) 09/04/17 15:37 MCH 30.6 pg (25.0-35.0) 09/04/17 15:37 MCHC 32.3 g/dl (31.0-37.0) 09/04/17 15:37 RDW 13.7 % (11.5-14.5) 09/04/17 15:37 Plt Count 286 10^3/uL (120.0-450.0) 09/04/17 15:37 MPV 11.1 fl (7.0-11.0) H 09/04/17 15:37 Gran % 68.6 % (50.0-68.0) H 09/04/17 15:37 Lymph % (Auto) 23.1 % (22.0-35.0) 09/04/17 15:37 [place] % (Auto) 6.2 % (1.0-6.0) H 09/04/17 15:37 Eos % (Auto) 1.9 % (1.5-5.0) 09/04/17 15:37 Baso % (Auto) 0.2 % (0.0-3.0) 09/04/17 15:37 Gran # 6.09 (1.4-6.5) 09/04/17 15:37 Lymph # 2.1 (1.2-3.4) 09/04/17 15:37 [place] # 0.6 (0.1-0.6) 09/04/17 15:37 Eos # 0.2 (0.0-0.7) 09/04/17 15:37 Baso # 0.02 K/mm3 (0.0-2.0) 09/04/17 15:37 Sodium 141 mmol/L (132-148) 09/04/17 15:37 Potassium 3.8 mmol/L (3.6-5.0) 09/04/17 15:37 Chloride 105 mmol/L (98-107) 09/04/17 15:37 Carbon Dioxide 27 mmol/L (21-33) 09/04/17 15:37 Anion Gap 13 (10-20) 09/04/17 15:37 BUN 16 mg/dL (7-21) 09/04/17 15:37 Creatinine 0.6 mg/dL (0.7-1.2) L 09/04/17 15:37 Est GFR ( Amer) > 60 09/04/17 15:37 Est GFR (Non-Af Amer) > 60 09/04/17 15:37 Random Glucose 101 mg/dL (70-110) 09/04/17 15:37 Calcium 9.1 mg/dL (8.4-10.5) 09/04/17 15:37 Total Bilirubin 0.6 mg/dL (0.2-1.3) 09/04/17 15:37 AST 32 U/L (14-36) 09/04/17 15:37 ALT 36 U/L (7-56) 09/04/17 15:37 Alkaline Phosphatase 99 U/L (38-126) 09/04/17 15:37 Lactate Dehydrogenase 444 U/L (333-699) 09/04/17 15:37 Total Creatine Kinase 70 U/L (35-230) 09/04/17 15:37 Troponin I < 0.01 ng/mL 09/04/17 15:37 Total Protein 7.3 g/dL (5.8-8.3) 09/04/17 15:37 Albumin 4.0 g/dL (3.0-4.8) 09/04/17 15:37 Globulin 3.3 gm/dL 09/04/17 15:37 Albumin/Globulin Ratio 1.2 (1.1-1.8) 09/04/17 15:37 Triglycerides 189 mg/dL (35-160) H 09/05/17 13:00 Cholesterol 173 mg/dL (130-200) 09/05/17 13:00 LDL Cholesterol Direct 65 mg/dL (0-129) 09/05/17 13:00 HDL Cholesterol 49 mg/dL (29-60) 09/05/17 13:00 TSH 3rd Generation 4.75 mIU/mL (0.46-4.68) H 09/05/17 13:00 - Constitutional Appears: Well, No Acute Distress - Head Exam Head Exam: ATRAUMATIC, NORMAL INSPECTION, NORMOCEPHALIC - Eye Exam Eye Exam: Normal appearance - ENT Exam ENT Exam: Normal External Ear Exam - Neck Exam Neck Exam: Normal Inspection - Respiratory Exam Respiratory Exam: NORMAL BREATHING PATTERN - Cardiovascular Exam Cardiovascular Exam: absent: JVD - GI/Abdominal Exam GI & Abdominal Exam: absent: Distended - Rectal Exam Rectal Exam: Deferred - Exam Additional comments: Deferred. - Extremities Exam Extremities Exam: Normal Inspection - Back Exam Back Exam: NORMAL INSPECTION - Neurological Exam Neurological Exam: Alert, Oriented x3 - Psychiatric Exam Psychiatric exam: Normal Affect, Normal Mood - Skin Skin Exam: Normal Color Assessment and Plan - Assessment and Plan (Free Text) Assessment: Non compliance. Dizziness. S/P fall. HTN. Obesity. Plan: Patient signed AMA form after I explained to her in detail what can be the consequences of signing out AMA. This was done in presence of primary nurse of patient-
--- NOTE | 2017-09-05 22:30 | CARD ---
APPROVED REPORT Protocol: NARDA Test Type: Sestamibi Stress Test Attending Physician: Dr. Ce Herrera Referring Physician: Dr. Pratibha Dickey Test Indications: Syncope Height:5 ft 4 in Weight:170lbs Medications: xanax, norvasc, synthroid, cozaar Medical History: 56 year old female with a h/o htn, hypothyroidism, diverticulitis, appendectomy, herniated disks, anxiety, hysterectomy and syncompe Target HR: 166 bpm Resting ECG: RSR. Resting Heart Rate: 87 bpm Resting Blood Pressure: 162/90mmHg Submaximum (85%): 141 bpm POST EXERCISE Reason for Termination: Fatigue Target HR: No Max HR: 136 bpm 82% of Maximum Predicted HR: 166 bpm Exercise duration: 06:46 min:sec, 3 Stage Exercise capacity: 8.1METs Max Blood Pressure: 190/90mmHg Blood Pressure response to exercise: normal resting BP - appropriate response Heart Rate response to exercise: appropriate Chest Pain: No, none Angina index: 0 Arrhythmia: No, none ST Change: No, none Deviation: 0 mm TEST SUMMARY [id number]/.[id number]. [id number]. EXERCISESTAGE [id number]/92.0. EXERCISESTAGE 203:[id number]/92.0. EXERCISESTAGE 300:[id number]/92.0. [id number]/90.0. INTERPRETATION Stress EKG Conclusion: MYOVIEW NUCLEAR STRESS TEST STOPPED AFTER 6 MINUTES AND 46 SECONDS OF NARDA PROTOCOL DUE TO FATIGUE. PATIENT ACHIEVED 81% OF PREDICTED HEART RATE. NO CHEST PAIN. NO ST-T CHANGES. NUCLEAR SCAN REPORT TO FOLLOW. Signed by Ce Herrera Electronically Approved: 09/05/2017 11:30:48 EXAM: Myocardial Perfusion REST/STRESS Stress Test Type: Exercise Treadmill Imaging Protocol Rest Spect myocardial perfusion imaging was performed in supine position 45 minutes following the injection of 10.3 mCi of Tc-99 Myoview. At peak stress, the patient was injected intravenously with 30.9mCi of Tc-99 tetrofosmin after an exercise time of 6 minutes and 46 seconds. Gated Stress Spect was performed 80 minutes after intravenous Tc-99 Myoview injection. The images were gated to evaluate regional wall motion and calculate ventricular ejection fraction.Images were reconstructed using backfilter projection method in short horizontal and verticle long axis. Spect slices were generated. LV Perfusion The quality of the study is good. The left ventricle is within normal limits in size with thickened myocardium. The right ventricle is unremarkable. The lung uptake is normal. The distribution of tracer reveals mildly and diffusely decreased perfusion in the inferior wall on the stress study. The remainder of the LV myocardium is unremarkable. The rest myocardial perfusion study shows no significant change. Wall Motion Wall motion study shows good contractility of the left ventricle. LVEF = 76%. Conclusion 1. Essentially normal SPECT myocardial perfusion study. 2. Fixed, inferior defect is most likely due to diaphrgmatic attenuation. 3. Normal gated wall motion and thicknening of the left ventricle.
--- NOTE | 2017-09-06 03:46 | HP ---
CHIEF COMPLAINT: Fall trauma. HISTORY OF PRESENT ILLNESS: The patient is a 56-year-old female with history of hypertension, chronic back pain, herniated disc, who came for evaluation of fall. The patient states that she was running to catch the door, became dizzy and fell forward on to her outstretched hand and left face. The patient reports pain on her bilateral hands, left face. Denies trauma to other parts of the body. No loss of consciousness as per the patient. No fever, no chills. No shortness of breath. No nausea, vomiting or diarrhea. I saw the patient in the stress lab; she got stress test today. Feeling better. I called Cardiology consult and waiting for the input of the neurologist. PAST MEDICAL HISTORY: Hypertension, L5 herniated disc, hysterectomy, appendectomy. HABITS: Smoking one pack of cigarettes per day. No alcohol. No illicit drugs. FAMILY HISTORY: Father and mother, noncontributory. REVIEW OF SYSTEMS: The patient was seen and examined on the bedside, in stress lab. Looking comfortable. No nausea, vomiting or diarrhea. No hematuria, no hematochezia. No swelling of the leg. No chest pain, no palpitation. No headache, no dizziness. No fever, no chills. PHYSICAL EXAMINATION: VITAL SIGNS: Temperature 98.2, pulse 97, blood pressure 156/88, respiratory rate 20. HEENT: Head is normocephalic and atraumatic. Eyes PERRLA. Extraocular muscles intact. Conjunctivae clear. Nose patent. Mucous membrane moist. NECK: Supple. No carotid bruits. No JVD. No thyromegaly. CHEST: Bilaterally symmetrical. HEART: S1 and S2 positive. LUNGS: Clear to auscultation. ABDOMEN: Soft. Bowel sounds positive. No organomegaly. EXTREMITIES: No edema. No cyanosis. NEUROLOGIC: The patient is awake and alert. Moving all four extremities. No focal deficits. LABORATORY DATA: White blood cells 8.9, hemoglobin 11.7, hematocrit 36.2 and platelets 286. Sodium 141, potassium 3.8, BUN 16, creatinine 0.6. Triglyceride 189. TSH 4.75. Cholesterol 173. ASSESSMENT AND PLAN: The patient is a 56-year-old lady with anemia, hypertriglyceridemia, hypothyroidism, came with fall. Did CAT scan of the head, no evidence of acute intracranial hemorrhage, intracranial collection, mass effect, or midline shift. We did maxillofacial CT, mild subcutaneous stranding and soft tissue swelling seen at the left anterior facial region. No evidence of acute fracture. Went for stress test, results are pending. Seen by food stylist, Dr. Jerad Morrissey. The patient has history of hypertension, hypothyroidism, obesity, and L5 herniated disc, dizziness, acute shortness of breath, history of fall, no loss of consciousness. Dr. Mars did stress test and acute, rule out mitral regurgitation, and rule out ischemia. Family is significant for coronary artery disease as per the patient; mother had bypass at the age of 50. Seen by neurologist. History of hysterectomy, appendectomy, actively smoker, history of diverticulitis. According to neurologist, the patient will need EEG and carotid Doppler. EKG reviewed. Echocardiography done by Dr. Mars. The patient signed against medical advice without getting clearance from the Neurology and Cardiology, but as per the patient, she will do followup as outpatient with food stylist, neurologist and primary care physician. The patient was seen by Dr. Cruz Cardoso. We will follow. Pratibha Dickey MD
== END 2017-09-05 21:55 | disposition left against medical advice (07) ==
LOC: ED 14:34 → ERH 17:39 → 2RNO 18:40
PROVIDERS: ADMIT Internal Medicine; ATTEND Internal Medicine
DX: R42 Dizziness and giddiness (principal); M51.26 Other intervertebral disc displacement, lumbar region; R06.02 Shortness of breath; I10 Essential (primary) hypertension; F17.210 Nicotine dependence, cigarettes, uncomplicated; E78.1 Pure hyperglyceridemia; E03.9 Hypothyroidism, unspecified; D64.9 Anemia, unspecified; M25.569 Pain in unspecified knee; Z91.81 History of falling; E66.9 Obesity, unspecified; Z68.37 Body mass index [BMI] 37.0-37.9, adult; Z91.19 Patient's noncompliance with other medical treatment and regimen
CPT/HCPCS: 36415; 70450; 70486; 71010; 78452; 80053; 80061; 82550; 83615; 84443; 84484; 85025; 90471; 90715; 93005; 93017; 93306; 99285; A9502; G0378

== ENCOUNTER 2017-12-24 08:45 | Emergency (ER) | payer OTHER ==
[2017-12-24 09:12] VITALS: BMI 34.9
[2017-12-24 09:17] VITALS: TEMP 98.2
--- NOTE | 2017-12-24 09:18 | ED PDOC ---
Arrival/HPI - General Time Seen by Provider: 12/24/17 09:10 Historian: Patient - History of Present Illness Narrative History of Present Illness (Text): 12/24/17 09:13 57 y/o female, pmh including htn/hyperlipidemia/divertiuclitis/L5 Herniated disc /umbilical hernia?, post menopausal, nkda, biba c/o abdominal pain started 12am this morning with 1 episode of vomiting. Pt. 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 Harley which off her elective surgery but she refused in 2017, pmd is Dr. Dickey, no palpitation, no night sweat, no dizziness, no urinary symptoms, no rash, no other medical or psychological complaints. Past Medical History - Provider Review Nursing Documentation Reviewed: Yes - Infectious Disease Hx of Infectious Diseases: None - Tetanus Immunization Tetanus Immunization: Unknown - Cardiac Hx Hypertension: Yes - Pulmonary Hx Respiratory Disorders: No - Neurological Hx Neurological Disorder: No - HEENT Hx HEENT Disorder: No - Renal Hx Renal Disorder: No - Endocrine/Metabolic Hx Endocrine Disorders: Yes Hx Hypothyroidism: Yes - Hematological/Oncological Hx Blood Disorders: No - Integumentary Hx Dermatological Disorder: Yes Other/Comment: redness swelling to left cheekbone, small abrasions to palms of both hands - Musculoskeletal/Rheumatological Hx Falls: Yes (today) - Gastrointestinal Hx Gastrointestinal Disorders: Yes Hx Diverticulitis: Yes (and diverticulosis) - Genitourinary/Gynecological Hx Genitourinary Disorders: No - Psychiatric Hx Psychophysiologic Disorder: Yes Hx Anxiety: Yes Hx Substance Use: No - Surgical History Hx Appendectomy: Yes Hx Hysterectomy: Yes - Anesthesia Hx Anesthesia: Yes - Suicidal Assessment Feels Threatened In Home Enviroment: No Family/Social History - Physician Review Nursing Documentation Reviewed: Yes Family/Social History: Unknown Family HX Smoking Status: Light Smoker < 10 Cigarettes Daily Hx Alcohol Use: No Hx Substance Use: No Hx Substance Use Treatment: No Allergies/Home Meds Allergies/Adverse Reactions: Allergies No Known Allergies Allergy (Verified 12/24/17 09:14) Home Medications: Home Meds Medication Instructions Recorded Confirmed Levothyroxine [Synthroid] 50 mcg PO DAILY 12/12/16 12/24/17 Losartan [Cozaar] 100 mg PO DAILY 07/16/17 12/24/17 amLODIPine [Norvasc] 10 mg PO DAILY 09/04/17 12/24/17 Review of Systems - Review of Systems Constitutional: absent: Fatigue, Fevers Eyes: absent: Vision Changes ENT: absent: Hearing Changes Respiratory: absent: SOB, Cough Cardiovascular: absent: Chest Pain Gastrointestinal: Abdominal Pain, Vomiting. absent: Diarrhea, Nausea Skin: absent: Rash, Pruritis Neurological: absent: Headache, Dizziness Psychiatric: absent: Anxiety, Depression Physical Exam Vital Signs Reviewed: Yes Vital Signs Temp Pulse Resp BP Pulse Ox 12/24/17 09:10 98.2 F 85 18 149/89 96 Temperature: Afebrile Blood Pressure: Normal Pulse: Regular Respiratory Rate: Normal Appearance: Positive for: Well-Appearing, Non-Toxic Pain Distress: Moderate Mental Status: Positive for: Alert and Oriented X 3 - Systems Exam Head: Present: Atraumatic, Normocephalic Pupils: Present: PERRL Extroacular Muscles: Present: EOMI Conjunctiva: Present: Normal Mouth: Present: Moist Mucous Membranes Neck: Present: Normal Range of Motion Respiratory/Chest: Present: Clear to Auscultation, Good Air Exchange. No: Respiratory Distress, Accessory Muscle Use Cardiovascular: Present: Regular Rate and Rhythm, Normal S1, S2. No: Murmurs Abdomen: Present: Tenderness (periumbilical region with mild bulging on the left umbilical 3' o clock position with no erythematous skin. ), Normal Bowel Sounds. No: Distention, Peritoneal Signs, Rebound, Guarding Back: Present: Normal Inspection Upper Extremity: Present: Normal Inspection. No: Cyanosis, Edema Lower Extremity: Present: Normal Inspection. No: Edema Neurological: Present: GCS=15, CN II-XII Intact, Speech Normal Skin: Present: Warm, Dry, Normal Color. No: Rashes Psychiatric: Present: Alert, Oriented x 3, Normal Insight, Normal Concentration Medical Decision Making ED Course and Treatment: 12/24/17 09:24 -labs -CT abdomen and pelvis r/o incarcerated hernia -IVF/morphine/zofran -Observe and reassess 12/24/17 10:03 -Ice pack apply to reduce the swelling, IV morphine given for analgesic controlled, hernia reduced completely by Dr. White, pain and symptoms resolved , CT abdomen and pelvis cancelled. -Pt. has no urinary symptoms. 12/24/17 10:12 -Labs are non-significant except wbc 11.8 (likely pain and stress induced). -abdominal pain and bulging resolved, abdomen is currently soft with no tenderness/guarding. -I offered admission for elective surgery as inpatient to resolved future hernia but she declined to be admitted and declined to have surgery at this time. There is no emergent surgical intervention at this time. -I discussed with DR. White about the patient's decision and he examined the patient, stated that the patient can be discharged home. -Discharge home with naproxen for pain as needed, follow up with your own pmd and general surgeon within 2 days, avoid heavy lifting, return to the ER for any new or worsening signs or symptoms. - Lab Interpretations Lab Results: 12/24/17 09:35 12/24/17 09:35 Lab Results 12/24/17 09:35: WBC 11.8 H D, RBC 4.22, Hgb 13.2, Hct 40.3, MCV 95.5, MCH 31.3, MCHC 32.8, RDW 13.7, Plt Count 276, MPV 11.1 H, Gran % 66.8, Lymph % (Auto) 21.4 L, [place] % (Auto) 8.5 H, Eos % (Auto) 3.1, Baso % (Auto) 0.2, Gran # 7.86 H , Lymph # (Auto) 2.5, [place] # (Auto) 1.0 H, Eos # (Auto) 0.4, Baso # (Auto) 0.02 12/24/17 09:35: Sodium 142, Potassium 4.3, Chloride 109 H, Carbon Dioxide 22, Anion Gap 15, BUN 22 H, Creatinine 0.7, Est GFR ( Amer) > 60, Est GFR ( Non-Af Amer) > 60, Random Glucose 105, Calcium 9.3, Total Bilirubin 0.5, AST 40 H D, ALT 58 H, Alkaline Phosphatase 79, Total Protein 7.9, Albumin 4.2, Globulin 3.7, Albumin/Globulin Ratio 1.1, Lipase 97 12/24/17 09:35: PT 11.1, INR 0.97, APTT 28.4 - Medication Orders Current Medication Orders: Sodium Chloride (Sodium Chloride 0.9%) 1,000 mls @ 100 mls/hr IV .Q10H PATRICIA Last Admin: 12/24/17 09:52 Dose: 100 mls/hr eMAR Start Stop Document 12/24/17 09:52 SE (Rec: 12/24/17 09:52 [id number]) Intravenous Solution Start Date 12/24/17 Start Time 09:52 Discontinued Medications Morphine Sulfate (Morphine) 4 mg IVP STAT STA Stop: 12/24/17 09:21 Last Admin: 12/24/17 09:51 Dose: 4 mg MAR Pain Assessment Document 12/24/17 09:51 SE (Rec: 12/24/17 09:51 [id number]) Pain Reassessment Is this a pain reassessment? No Sleep Is patient sleeping during reassessment? 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 / has examined the patient and agrees with the treatment plan. Disposition/Present on Arrival - Present on Arrival Any Indicators Present on Arrival: No History of DVT/PE: No History of Uncontrolled Diabetes: No Urinary Catheter: No History of Decub. Ulcer: No History Surgical Site Infection Following: None - Disposition Have Diagnosis and Disposition been Completed?: Yes Diagnosis: Hernia of abdominal cavity, Abdominal pain Disposition: HOME/ ROUTINE Disposition Time: 10:19 Patient Plan: Discharge Patient Problems: Current Active Problems Problem Status Onset Abdominal pain Acute Hernia of abdominal cavity Acute Condition: IMPROVED Additional Instructions: -Discharge home with naproxen for pain as needed, follow up with your own pmd and general surgeon within 2 days, avoid heavy lifting, return to the ER for any new or worsening signs or symptoms. Prescriptions: Naproxen 500 mg PO BID PRN #20 tab PRN Reason: Other Referrals: Aman Harley MD [Staff Provider] - Follow up with primary Pratibha Dickey MD [Family Provider] - Follow up with primary Forms: WORK NOTE
[2017-12-24] MEDS ORDERED: Morphine 4 mg/ml ISec IVP STA (09:20)
[2017-12-24] MEDS ORDERED: Sodium Chloride 0.9% 1,000 ML IV SCH (09:30)
[2017-12-24] MEDS ORDERED: Iohexol 350 MG/100 ML VIAL ONE (09:58)
[2017-12-24 09:59] LABS: BASO # 0.02 K/mm3 (0.0-2.0); BASO % 0.2 % (0.0-3.0); EOS # 0.4 (0.0-0.7); EOS % 3.1 % (1.5-5.0); GRAN # 7.86 (1.4-6.5); GRAN % 66.8 % (50.0-68.0); HEMOGLOBIN 13.2 g/dL (12.0-16.0); LYMPH # 2.5 (1.2-3.4); LYMPH % 21.4 % (22.0-35.0); MEAN CELL VOLUME 95.5 fl (80.0-105.0); MEAN CORPUSCULAR HEMOGLOBIN 31.3 pg (25.0-35.0); MEAN CORPUSCULAR HGB CONC 32.8 g/dl (31.0-37.0); MEAN PLATELET VOLUME 11.1 fl (7.0-11.0); MONO % 8.5 % (1.0-6.0); RBC 4.22 10^6/uL (3.5-6.1); RED CELL DISTRIBUTION WIDTH 13.7 % (11.5-14.5); WHITE BLOOD COUNT 11.8 10^3/ul (4.5-11.0)
[2017-12-24 10:07] LABS: INR 0.97 (0.93-1.08); PARTIAL THROMBOPLASTIN TIME 28.4 Seconds (25.1-36.5); PROTHROMBIN TIME 11.1 SECONDS (9.4-12.5)
[2017-12-24 10:10] LABS: ALB/GLOB RATIO 1.1 (1.1-1.8); ALBUMIN 4.2 g/dL (3.0-4.8); ALT/SGPT 58 U/L (7-56); AST/SGOT 40 U/L (14-36); BLOOD UREA NITROGEN 22 mg/dL (7-21); CALCIUM 9.3 mg/dL (8.4-10.5); GFR AFRICAN-AMERICAN > 60; GFR NON-AFRICAN AMERICAN > 60; LIPASE 97 U/L (23-300)
[2017-12-24 10:36] VITALS: BP 160/90; PULSE 75; RESP 16; O2SAT 98
== END 2017-12-24 10:35 | disposition home or self-care (01) ==
LOC: ED 08:45
DX: K46.9 Unspecified abdominal hernia without obstruction or gangrene (principal); R10.9 Unspecified abdominal pain; I10 Essential (primary) hypertension; F17.210 Nicotine dependence, cigarettes, uncomplicated
CPT/HCPCS: 80053; 83690; 85025; 85610; 85730; 96374; 96375; 99284; J2270; J2405; J7040

== ENCOUNTER 2018-03-30 22:55 | Emergency (ER) | payer OTHER ==
[2018-03-30 22:56] VITALS: BMI 29.2
[2018-03-30 23:10] VITALS: RESP 18; TEMP 98.8
--- NOTE | 2018-03-30 23:14 | ED PDOC ---
Arrival/HPI - General Chief Complaint: Female Genitourinary Time Seen by Provider: 03/30/18 23:00 Historian: Patient - History of Present Illness Narrative History of Present Illness (Text): 03/30/18 23:11 This is a 57 yo female, pmh including htn/hyperlipidemia/diverticulitis/L5 Herniated disc/umbilical hernia, post menopausal, nkda, presents to this Emergency department complaining of urinary frequency, dysuria, and hematuria x 4 days. Patient also noted b/l lower back pain. Patient stated she forgot to take her hypertension medication. Patient denies fever, flank pain, or vaginal discharge. Time/Duration: Other (see hpi) Context: Home Past Medical History - Provider Review Nursing Documentation Reviewed: Yes - Infectious Disease Hx of Infectious Diseases: None - Tetanus Immunization Tetanus Immunization: Unknown - Cardiac Hx Cardiac Disorders: Yes Hx Hypertension: Yes - Pulmonary Hx Respiratory Disorders: No - Neurological Hx Neurological Disorder: No - HEENT Hx HEENT Disorder: No - Renal Hx Renal Disorder: No - Endocrine/Metabolic Hx Endocrine Disorders: Yes Hx Hypothyroidism: Yes - Hematological/Oncological Hx Blood Disorders: No - Integumentary Hx Dermatological Disorder: No - Musculoskeletal/Rheumatological Hx Musculoskeletal Disorders: Yes Hx Falls: Yes Hx Herniated Disk: Yes - Gastrointestinal Hx Gastrointestinal Disorders: Yes Hx Diverticulitis: Yes (and diverticulosis) - Genitourinary/Gynecological Hx Genitourinary Disorders: No - Psychiatric Hx Psychophysiologic Disorder: Yes Hx Anxiety: Yes Hx Substance Use: No - Surgical History Hx Appendectomy: Yes Hx Hysterectomy: Yes - Anesthesia Hx Anesthesia: Yes - Suicidal Assessment Feels Threatened In Home Enviroment: No Family/Social History - Physician Review Nursing Documentation Reviewed: Yes Family/Social History: Other (noncontributory) Smoking Status: Light Smoker < 10 Cigarettes Daily Hx Alcohol Use: No Hx Substance Use: No Hx Substance Use Treatment: No Allergies/Home Meds Allergies/Adverse Reactions: Allergies No Known Allergies Allergy (Verified 12/24/17 09:14) Home Medications: Home Meds Medication Instructions Recorded Confirmed Levothyroxine [Synthroid] 50 mcg PO DAILY 12/12/16 12/24/17 Losartan [Cozaar] 100 mg PO DAILY 07/16/17 12/24/17 amLODIPine [Norvasc] 10 mg PO DAILY 09/04/17 12/24/17 Review of Systems - Review of Systems Constitutional: Normal. absent: Fatigue, Weight Change, Fevers Eyes: Normal ENT: Normal Respiratory: Normal. absent: SOB, Cough Cardiovascular: Normal. absent: Chest Pain, Palpitations Gastrointestinal: Normal. absent: Abdominal Pain, Nausea, Vomiting Genitourinary Female: Dysuria, Frequency, Hematuria. absent: Vaginal Bleeding, Vaginal Discharge Musculoskeletal: Back Pain, Other (denies flank pain) Skin: Normal. absent: Rash, Pruritis, Skin Lesions, Laceration Neurological: Normal. absent: Headache, Dizziness, Focal Weakness, Gait Changes , Speech Changes, Facial Droop, Disequilibrium, Seizure Endocrine: Normal Hemo/Lymphatic: Normal Psychiatric: Normal Physical Exam Vital Signs Temp Pulse Resp BP Pulse Ox 03/31/18 01:19 85 18 157/87 H 100 03/31/18 00:51 85 18 157/87 H 100 03/30/18 23:52 86 18 179/103 H 100 03/30/18 23:18 93 H 192/109 H 03/30/18 23:09 98.8 F 93 H 18 192/109 H 97 Temperature: Afebrile Blood Pressure: Normal Pulse: Regular Respiratory Rate: Normal Appearance: Positive for: Well-Appearing, Non-Toxic, Comfortable Pain Distress: None Mental Status: Positive for: Alert and Oriented X 3 - Systems Exam Head: Present: Atraumatic, Normocephalic Pupils: Present: PERRL Extroacular Muscles: Present: EOMI Conjunctiva: Present: Normal Mouth: Present: Moist Mucous Membranes Neck: Present: Normal Range of Motion, Trachea Midline. No: Meningeal Signs, MIDLINE TENDERNESS, Paraspinal Tenderness, Lymphadenopathy Respiratory/Chest: Present: Clear to Auscultation, Good Air Exchange. No: Respiratory Distress, Accessory Muscle Use, Wheezes, Retracting, Rhonchi Cardiovascular: Present: Regular Rate and Rhythm, Normal S1, S2. No: Murmurs Abdomen: Present: Normal Bowel Sounds. No: Tenderness, Distention, Peritoneal Signs, Rebound, Guarding, McBurney's Point Tender, Rovsing's Sign Present, Hernias Back: Present: Normal Inspection. No: CVA Tenderness, Midline Tenderness, Paraspinal Tenderness, Pain with Leg Raise Upper Extremity: Present: Normal Inspection, Normal ROM, NORMAL PULSES. No: Cyanosis, Edema Lower Extremity: Present: Normal Inspection, Normal ROM. No: Edema Neurological: Present: GCS=15, CN II-XII Intact, Speech Normal, Motor Func Grossly Intact, Normal Sensory Function, Normal Cerebellar Funct, Gait Normal Skin: Present: Warm, Dry, Normal Color. No: Rashes Psychiatric: Present: Alert, Oriented x 3, Normal Insight, Normal Concentration Medical Decision Making ED Course and Treatment: 03/31/18 01:11 Re-evaluation. Patient feels better. Discussed results and plan with patient who expresses understanding. All questions answered and there is agreement with the plan to discharge home with instructions. Patient stable for discharge. Return if symptoms persist or worsen. 03/31/18 01:15 Patient requested Norvasc prescription. She has an appointment to see her doctor in 2 weeks Re-evaluation Time: 01:11 Reassessment Condition: Re-examined, Improved - Lab Interpretations Microbiology Results: Microbiology Results 03/30/18 23:10 Urine Urine Culture - Final 10-50,000 CFU/ML. MULTIPLE SPECIES. PROBABLE CONTAMINATION. Lab Results: Lab Results 03/30/18 23:10: Urine Color Yellow, Urine Appearance Clear, Urine pH 6.0, Ur Specific [place] >= 1.030, Urine Protein >=300 H, Urine Glucose (UA) Negative, Urine Ketones Negative, Urine Blood Negative, Urine Nitrate Negative, Urine Bilirubin Negative, Urine Urobilinogen 0.2, Ur Leukocyte Esterase Small H, Urine RBC 0 - 2, Urine WBC 2 - 5, Ur Epithelial Cells Many, Urine Bacteria Mod I have reviewed the lab results: Yes Interpretation: Abnormal lab values - Medication Orders Current Medication Orders: Discontinued Medications Clonidine HCl (Catapres) 0.2 mg PO STAT STA Stop: 03/30/18 23:12 Last Admin: 03/30/18 23:18 Dose: 0.2 mg MAR Pulse and Blood Pressure Document 03/30/18 23:18 AD (Rec: 03/30/18 23:18 AD [id number]) Pulse Pulse Rate (60-90) 93 Blood Pressure Blood Pressure (100/60-150/90) 192/109 Ketorolac Tromethamine (Toradol) 15 mg IM STAT STA Stop: 03/31/18 01:07 Last Admin: 03/31/18 01:15 Dose: 15 mg MAR Pain Assessment Document 03/31/18 01:15 AD (Rec: 03/31/18 01:16 AD [id number]) Pain Reassessment Is this a pain reassessment? No Presence of Pain Presence of Pain Yes Description Intensity of Pain at present 8 IM Administration Charges Document 03/31/18 01:15 AD (Rec: 03/31/18 01:16 AD [id number]) Injection Site MAR Injection Site Left Deltoid Charges for Administration # of IM Administrations 1 Nitrofurantoin Macrocrystals (Macrobid) 100 mg PO STAT STA PRN Reason: Protocol Stop: 03/31/18 01:07 Last Admin: 03/31/18 01:16 Dose: 100 mg Phenazopyridine HCl (Pyridium) 200 mg PO STAT STA Stop: 03/31/18 01:07 Last Admin: 03/31/18 01:16 Dose: 200 mg Disposition/Present on Arrival - Present on Arrival Any Indicators Present on Arrival: No History of DVT/PE: No History of Uncontrolled Diabetes: No Urinary Catheter: No History of Decub. Ulcer: No History Surgical Site Infection Following: None - Disposition Have Diagnosis and Disposition been Completed?: Yes Diagnosis: Acute cystitis, Medication refill Disposition: HOME/ ROUTINE Disposition Time: 01:11 Patient Plan: Discharge Condition: GOOD Discharge Instructions (ExitCare): Acute Cystitis (DC) Additional Instructions: Call private doctor for follow up visit in 1-2 days. take medication as instructed. Return to emergency if symptoms worsen. Drink enough fluids Prescriptions: amLODIPine [Norvasc] 5 mg PO DAILY #20 tab Ibuprofen [Motrin] 600 mg PO Q8 PRN #20 tab PRN Reason: Pain, Severe (8-10) Nitrofurantoin Macrocrystals [Macrobid] 100 mg PO BID #14 cap Phenazopyridine HCl [Pyridium] 200 mg PO TID #6 tablet Referrals: Sujata Haile MD [Staff Provider] - Follow up with primary Forms: [employer] (Urdu), WORK NOTE
[2018-03-30 23:36] LABS: URINE BILIRUBIN NEGATIVE (NEGATIVE); URINE BLOOD NEGATIVE (NEGATIVE); URINE GLUCOSE (UA) NEGATIVE (NEGATIVE); URINE LEUKOCYTE ESTERASE SMALL Leu/uL (NEGATIVE); URINE PROTEIN >=300 mg/dL (<30 mg/dL); URINE UROBILINOGEN 0.2 E.U./dL (<1 E.U./dL)
[2018-03-30 23:46] LABS: URINE APPEARANCE CLEAR (CLEAR); URINE COLOR YELLOW (YELLOW)
[2018-03-30 23:49] LABS: URINE BACTERIA MOD (NEG); URINE EPITHELIAL CELLS MANY /hpf (0-5); URINE RBC 0 - 2 /hpf (0-2)
[2018-03-30 23:52] VITALS: O2SAT 100
[2018-03-31 00:51] VITALS: BP 157/87; PULSE 85
== END 2018-03-31 01:20 | disposition home or self-care (01) ==
LOC: ED 22:55
DX: N30.00 Acute cystitis without hematuria (principal)
CPT/HCPCS: 81001; 87086; 96372; 99283; J1885